=== PATIENT | female | born 1975 | race Caucasian/White ===

== ENCOUNTER 2021-11-13 10:01 | Outpatient (CLI) | payer BC | END 2021-11-13 10:02 | disposition home or self-care (01) | LOC: CSHMAMMO 10:01 | PROVIDERS: ATTEND Obstetrics & Gynecology | DX: Z12.31 Encounter for screening mammogram for malignant neoplasm of breast (principal) | CPT/HCPCS: 77063; 77067 ==

== ENCOUNTER 2025-03-27 09:21 | Outpatient (CLI) | payer BC | END 2025-03-27 09:22 | disposition home or self-care (01) | LOC: CSHMAMMO 09:21 | PROVIDERS: ATTEND Obstetrics & Gynecology | DX: Z12.31 Encounter for screening mammogram for malignant neoplasm of breast (principal) | CPT/HCPCS: 77063; 77067 ==